=== PATIENT | male | born 1985 | race African-American/Black ===

== ENCOUNTER 2017-01-06 17:03 | Emergency (ER) | payer BC ==
[2017-01-06 17:07] VITALS: BP 133/72; BMI 29.0
--- NOTE | 2017-01-06 17:18 | DR.GENAD ---
HPI - PCP Primary Care Physician: DR. HAIR - Complaint/Symptoms Chief Complaint Doctors Comments: Patient diagnosed with mild broad-based disc bulging L3-L4;L4-L5 with facet arthropathy. Patient has pain medication. He is awaiting appointment for evaluation of orthopedic surgeon by history. Chief Complaint:: LOWER BACK PAIN THAT IS CHRONIC BUT CAN BARELY MOVE. - Source History Provided: Patient - Mode of Arrival Mode of Arrival: Ambulatory - Timing Onset of Chief Complaint: 01/06/17 PMH - PMH Past Medical History: Yes Past Medical History Comment: BACK PAIN Past Surgical History: Yes Surgical History: Other - Family History History of Family Medical Conditions: Yes Family Medical History: Diabetes Mellitus, Coronary Artery Disease, Hypertension - Social History Does patient currently use any type of tobacco product: No Have you used tobacco products in the last 12 months: No Type of Tobacco Use: None Does any household member use tobacco: No Alcohol Use: None Do you use any recreational Drugs:: No Lives With: Family Lives Where: Home - infectious screening In the last 2 months have you had wt loss of >10#?: NO Have you had fever, night sweats or hemotysis?: No Have you traveled outside the country in the last 6 months?: No Isolation: Standard ROS - Review of Systems Constitutional: No Symptoms Reported Eyes: No Symptoms Reported ENTM: No Symptoms Reported Respiratoy: No Symptoms Reported Cardiovascular: No Symptoms Reported Gastrointestinal/Abdominal: No Symptoms Reported Genitourinary: No Symptoms Reported Neurological: No Symptoms Reported Musculoskeletal: No Symptoms Reported Integumentary: No Symptoms Reported Hematologic/Lymphatic: No Symptoms Reported Endocrine: No Symptoms Reported Psychiatric: No Symptoms Reported All Other Systems: Reviewed and Negative PE - Vital Signs Vitals: Temperature 98.2 F Pulse Rate 83 Respiratory Rate 20 Blood Pressure 133/72 O2 Sat by Pulse Oximetry 99 - General Limitations: No Limitations General Appearance: Alert, In No Apparent Distress - Head Head Exam: Normal Inspection, Atraumatic - Eyes Eye exam: Normal Appearance, PERRL, EOMI - ENT ENT Exam: Normal Exam External Ear Exam: Normal External Inspection TM/Canal Exam: Bilateral Normal Nose Exam: Normal Nose Exam Mouth Exam: Normal Inspection Throat Exam: Normal Inspection - Neck Neck Exam: Normal Inspection, Full ROM - Chest Chest Inspection: Normal Inspection - Respiratory Respiratory Exam: Normal Lung Sounds Bilat Respiratory Exam: Bilateral Clear to Auscultation - Cardiovascular Cardiovascular Exam: Regular Rate, Normal Rhythm - Abdominal Exam Abdominal Exam: Normal Inspection, Normal Bowel Sounds Abdominal Tenderness: negative: RUQ, RLQ, LUQ, LLQ, Epigastrium, Suprapubic, Diffuse, Mild, Moderate, Severe, Other - Back Back Exam: Normal Inspection, Vertebral Tenderness. negative: (R) Straight Leg Raise, (L) Straight Leg Raise - Neurologic Neurological Exam: Alert, Oriented X3, CN II-XII Intact - Diagnosis Discharge Problem: Back pain Qualifiers: Back pain location: low back pain Chronicity: acute Back pain laterality: midline Sciatica presence: with sciatica Sciatica laterality: bilateral sciatica Qualified Code(s): M54.42 - Lumbago with sciatica, left side; M54.41 - Lumbago with sciatica, right side - Discharge Plan Condition: Stable - Follow ups/Referrals Follow ups/Referrals: Cecilia Hair [Primary Care Provider] - 3 days - Instructions
== END 2017-01-06 17:58 | disposition home or self-care (01) ==
LOC: ER 17:03
DX: M54.42 Lumbago with sciatica, left side (principal); M54.41 Lumbago with sciatica, right side
CPT/HCPCS: 99281; 99282